=== PATIENT | female | born 1945 | race Caucasian/White ===

== ENCOUNTER 2017-12-26 14:14 | Emergency (ER) | payer MEDICARE, BC, SELFPAY ==
[2017-12-26 14:15] VITALS: BP 126/80; PULSE 56; RESP 18; TEMP 36.1; O2SAT 99; BMI 32.2
--- NOTE | 2017-12-26 14:31 | RAD_ITS ---
STUDY: X-RAY - LEFT RADIUS AND ULNA REASON FOR EXAM: Female, 72 years old. Patient fell today. TECHNIQUE: 3 view(s) of the forearm. # of Images: 3 COMPARISON: None. FINDINGS: There is soft tissue swelling. There is a slightly displaced fracture of the distal radius. Normal visualized ulna. RAD/Forearm 2 Views IMPRESSION: Fracture of the distal radius. Electronically Signed: Krunal Means MD at 15:41 EDT Tel , Service support ,
--- NOTE | 2017-12-26 14:34 | ED.VISSUMM ---
- ER Visit Summary Date of Service: 12/26/17 Chief Complaint: Left arm injury History of Present Illness: The patient is a 72 F who tripped going up some steps injuring her left forearm. Patient complains of pain to the mid to distal forearm. She denies paresthesias. She has abrasions to the right hand and left knee as well without bony tenderness. She denies striking her head or loss of consciousness. Physical Examination: Vital signs unremarkable. Patient sitting upright in bed no acute distress. Head neck examination reveals no external sign of trauma. Heart is regular rate and rhythm. Lungs sounds clear. Abdomen is soft nontender. Right upper extremity reveals abrasions to the PIP joints of the right second, third, fourth digits. She has full range of motion without bony tenderness. Left upper extremity examination reveals tenderness to the mid to distal forearm without obvious deformity. She has strong distal pulses and normal cap refill. There is no tenderness over the hand itself. There is no tenderness at the elbow or humerus. Left lower extremity examination reveals superficial abrasions to the anterior left knee without bony tenderness. Test Results: Left forearm x-rays reveal minimally displaced distal left radius fracture. Emergency Department Course and Treatment: Patient did take Tylenol prior to arrival. She was placed in [facility] splint. She is given a sling. She is given a copy of her x-rays on disc as she does live in the [place] area and will follow up with her orthopedist to there. She will be given a prescription for oxycodone if needed. Treatment Plan: [] Disposition: Discharge Impression: Left distal radius fracture This note was generated with [employer] dictation software. It may contain incorrect words, spelling, and punctuation that were not noted in review of the chart prior to signing ED Disposition - Plan for ED Patient: Chief Complaint: Upper Extremity Injury Referrals: [facility],Out of [Primary Care Provider] -
--- NOTE | 2017-12-26 15:25 | ED.DEP ---
ED Disposition - Plan for ED Patient: Disposition: Home or Assisted Living Chief Complaint: Upper Extremity Injury Instructions: ED Fx Wrist General Prescriptions: Oxycodone [Oxyir] 5 mg PO Q6H PRN PRN 3 Days #14 tablet PRN Reason: Pain Referrals: [facility],Out of [Primary Care Provider] - Additional Instructions: Follow-up with your orthopedic surgeon as discussed.
[2017-12-26] MEDS: oxyCODONE 5 MG Tablet PO (15:34)
== END 2017-12-26 15:36 | disposition home or self-care (01) ==
PROVIDERS: Emergency Provider Emergency Medicine
DX: S52.502A Unspecified fracture of the lower end of left radius, initial encounter for closed fracture (principal); W01.10XA Fall on same level from slipping, tripping and stumbling with subsequent striking against unspecified object, initial encounter; Y93.9 Activity, unspecified; Y92.89 Other specified places as the place of occurrence of the external cause; Y99.9 Unspecified external cause status
CPT/HCPCS: 73090; 99283